=== PATIENT | female | born 1990 | race Caucasian/White ===

== ENCOUNTER 2018-02-14 19:23 | Emergency (ER) | payer OTHER ==
[~2018-02-14] VITALS: Ht 157.5 cm; Wt 59.0 kg
[~2018-02-14 19:23] MED LIST: ALBU17I INH; DEPA250T2 PO; GEOD60CA PO; LAMI25TA3 PO; LEVE500 PO; RISP0.2516 OR; ZOLO25TA PO
[2018-02-14 19:33] VITALS: BP 106/62; PULSE 87; RESP 16; TEMP 98.1; O2SAT 100
[2018-02-14] MEDS ORDERED: SODIUM CHLOR 0.9% 1000 ML INJ 1,000 ML IV SCH (19:48)
--- NOTE | 2018-02-14 19:58 | PD ---
HPI Chief Complaint: Abdominal Pain Time Seen by Provider: 19:36 Travel History International Travel<30 days: No Contact w/Intl Traveler<30days: No Traveled to known affect area: No History of Present Illness HPI Patient is a 27-year-old female presenting to emerge from for evaluation of abdominal pain. Patient states started 2 hours prior to arrival, she reports that it is in her lower abdomen and pelvis. She reports urinary frequency as well as vaginal discharge. Patient states she has felt nauseated and reports vomiting. She denies any fevers, chills, chest pain, shortness of breath. She reports her pain is 8 out of 10, constant and stabbing in nature. Symptom onset was sudden, symptoms are moderate in nature. No alleviating factors, no exacerbating factors. Patient denies any change in her bowel habits. 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) Psychiatric: Yes (Schizoaffective disorder) Schizophrenia: Yes Seizures: Yes ?: Not LMP: October : 5 Para: 1 Past Surgical History Eye Surgery: Yes (EYE MUSCLE/EYE BUCKLE L EYE) Social History Alcohol Use: No Tobacco Use: Yes (3 CIG DAY) Substance Use: Yes (MJ) Allergies-Medications (Allergen,Severity, Reaction): Coded Allergies: No Known Allergies (Unverified Adverse Reaction, Unknown, 02/14/18) Reported Meds & Prescriptions Reported Meds & Active Scripts Active Lamictal (Lamotrigine) 25 Mg Tab 25 Mg PO BID Keppra (Levetriacetam) 500 Mg Tab 3 Tab PO BID Reported Proventil Mdi (Albuterol Sulfate) 17 Gm Aero 1 Puff INH DIRECTED Zoloft (Sertraline HCl) 25 Mg Tab 0 PO DAILY UNKNOWN DOSE Risperdal (Risperidone) 0.25 Mg Tab 0.25 Mg OR TID Depakote (Divalproex Sodium) 250 Mg Tab 250 Mg PO TID Geodon (Ziprasidone) 60 Mg Cap 60 Mg PO BID Review of Systems Except as stated in HPI: all other systems reviewed are Neg General / Constitutional: No: Fever, Chills Cardiovascular: No: Chest Pain or Discomfort Gastrointestinal: Positive: Nausea, Vomiting, Abdominal Pain Genitourinary: Positive: Frequency, Pelvic Pain, Discharge Physical Exam Narrative GENERAL: Well-developed, well-nourished, alert female. Resting comfortably no acute distress. SKIN: Warm and dry. HEAD: Atraumatic. Normocephalic. EYES: Pupils equal and round. No scleral icterus. No injection or drainage. ENT: No nasal bleeding or discharge. Mucous membranes pink and moist. NECK: Trachea midline. No JVD. CARDIOVASCULAR: Regular rate and rhythm. RESPIRATORY: No accessory muscle use. Clear to auscultation. Breath sounds equal bilaterally. GASTROINTESTINAL: Abdomen soft, non-tender, nondistended. Hepatic and splenic margins not palpable. Positive bowel sounds, no rebound, no guarding. MUSCULOSKELETAL: Extremities without clubbing, cyanosis, or edema. No obvious deformities. NEUROLOGICAL: Awake and alert. No obvious cranial nerve deficits. Motor grossly within normal limits. Five out of 5 muscle strength in the arms and legs. Normal speech. PSYCHIATRIC: Appropriate mood and affect; insight and judgment normal. Data Data Last Documented VS Vital Signs Date Time Temp Pulse Resp B/P (MAP) Pulse Ox O2 Delivery O2 Flow Rate FiO2 02/14/18 19:33 98.1 87 16 106/62 (77) 100 Orders Orders Complete Blood Count With Diff (02/14/18 19:48) Comprehensive Metabolic Panel (02/14/18 19:48) Lipase (02/14/18 19:48) Urinalysis - C+S If Indicated (02/14/18 19:48) Iv Access Insert/Monitor (02/14/18 19:48) Ecg Monitoring (02/14/18 19:48) Oximetry (02/14/18 19:48) Sodium Chlor 0.9% 1000 Ml Inj (Ns 1000 M (02/14/18 19:48) Sodium Chloride 0.9% Flush (Ns Flush) (02/14/18 20:00) Gc And Chlamydia Pcr (02/14/18 19:52) Wet Prep Profile (02/14/18 19:52) Labs Laboratory Tests Test 02/14/18 20:00 02/14/18 20:30 White Blood Count 8.0 TH/MM3 Red Blood Count 4.35 MIL/MM3 Hemoglobin 12.2 GM/DL Hematocrit 36.6 % Mean Corpuscular Volume 84.2 FL Mean Corpuscular Hemoglobin 28.0 PG Mean Corpuscular Hemoglobin Concent 33.3 % Red Cell Distribution Width 16.7 % Platelet Count 249 TH/MM3 Mean Platelet Volume 7.3 FL Neutrophils (%) (Auto) 58.5 % Lymphocytes (%) (Auto) 30.4 % Monocytes (%) (Auto) 6.9 % Eosinophils (%) (Auto) 3.6 % Basophils (%) (Auto) 0.6 % Neutrophils # (Auto) 4.7 TH/MM3 Lymphocytes # (Auto) 2.4 TH/MM3 Monocytes # (Auto) 0.6 TH/MM3 Eosinophils # (Auto) 0.3 TH/MM3 Basophils # (Auto) 0.0 TH/MM3 CBC Comment DIFF FINAL Differential Comment Urine Color YELLOW Urine Turbidity CLEAR Urine pH 7.0 Urine Specific [place] 1.017 Urine Protein NEG mg/dL Urine Glucose (UA) NEG mg/dL Urine Ketones NEG mg/dL Urine Occult Blood NEG Urine Nitrite NEG Urine Bilirubin NEG Urine Urobilinogen LESS THAN 2.0 MG/DL Urine Leukocyte Esterase NEG Urine RBC LESS THAN 1 /hpf Urine WBC LESS THAN 1 /hpf Urine Squamous Epithelial Cells 1 /hpf Urine Mucus FEW /lpf Microscopic Urinalysis Comment CULT NOT INDICATED Blood Urea Nitrogen 9 MG/DL Creatinine 0.48 MG/DL Random Glucose 96 MG/DL Total Protein 7.4 GM/DL Albumin 3.7 GM/DL Calcium Level 8.5 MG/DL Alkaline Phosphatase 50 U/L Aspartate Amino Transf (AST/SGOT) 16 U/L Alanine Aminotransferase (ALT/SGPT) 19 U/L Total Bilirubin 0.6 MG/DL Sodium Level 137 MEQ/L Potassium Level 3.6 MEQ/L Chloride Level 104 MEQ/L Carbon Dioxide Level 27.1 MEQ/L Anion Gap 6 MEQ/L Estimat Glomerular Filtration Rate 156 ML/MIN Lipase 181 U/L Clue Cells (Wet Prep) NONE SEEN Vaginal Trichomonas (Wet Prep) NONE SEEN Vaginal Yeast (Wet Prep) NONE SEEN MDM Medical Decision Making Medical Screen Exam Complete: Yes Emergency Medical Condition: Yes Interpretation(s) Vital Signs Date Time Temp Pulse Resp B/P (MAP) Pulse Ox O2 Delivery O2 Flow Rate FiO2 02/14/18 19:33 98.1 87 16 106/62 (77) 100 Laboratory Tests Test 02/14/18 20:00 02/14/18 20:30 White Blood Count 8.0 TH/MM3 Red Blood Count 4.35 MIL/MM3 Hemoglobin 12.2 GM/DL Hematocrit 36.6 % Mean Corpuscular Volume 84.2 FL Mean Corpuscular Hemoglobin 28.0 PG Mean Corpuscular Hemoglobin Concent 33.3 % Red Cell Distribution Width 16.7 % Platelet Count 249 TH/MM3 Mean Platelet Volume 7.3 FL Neutrophils (%) (Auto) 58.5 % Lymphocytes (%) (Auto) 30.4 % Monocytes (%) (Auto) 6.9 % Eosinophils (%) (Auto) 3.6 % Basophils (%) (Auto) 0.6 % Neutrophils # (Auto) 4.7 TH/MM3 Lymphocytes # (Auto) 2.4 TH/MM3 Monocytes # (Auto) 0.6 TH/MM3 Eosinophils # (Auto) 0.3 TH/MM3 Basophils # (Auto) 0.0 TH/MM3 CBC Comment DIFF FINAL Differential Comment Urine Color YELLOW Urine Turbidity CLEAR Urine pH 7.0 Urine Specific [place] 1.017 Urine Protein NEG mg/dL Urine Glucose (UA) NEG mg/dL Urine Ketones NEG mg/dL Urine Occult Blood NEG Urine Nitrite NEG Urine Bilirubin NEG Urine Urobilinogen LESS THAN 2.0 MG/DL Urine Leukocyte Esterase NEG Urine RBC LESS THAN 1 /hpf Urine WBC LESS THAN 1 /hpf Urine Squamous Epithelial Cells 1 /hpf Urine Mucus FEW /lpf Microscopic Urinalysis Comment CULT NOT INDICATED Blood Urea Nitrogen 9 MG/DL Creatinine 0.48 MG/DL Random Glucose 96 MG/DL Total Protein 7.4 GM/DL Albumin 3.7 GM/DL Calcium Level 8.5 MG/DL Alkaline Phosphatase 50 U/L Aspartate Amino Transf (AST/SGOT) 16 U/L Alanine Aminotransferase (ALT/SGPT) 19 U/L Total Bilirubin 0.6 MG/DL Sodium Level 137 MEQ/L Potassium Level 3.6 MEQ/L Chloride Level 104 MEQ/L Carbon Dioxide Level 27.1 MEQ/L Anion Gap 6 MEQ/L Estimat Glomerular Filtration Rate 156 ML/MIN Lipase 181 U/L Clue Cells (Wet Prep) NONE SEEN Vaginal Trichomonas (Wet Prep) NONE SEEN Vaginal Yeast (Wet Prep) NONE SEEN Vital Signs Date Time Temp Pulse Resp B/P (MAP) Pulse Ox O2 Delivery O2 Flow Rate FiO2 02/14/18 19:33 98.1 87 16 106/62 (77) 100 Differential Diagnosis UTI versus pyelonephritis versus PID versus STD versus other Narrative Course Patient is a well-appearing 27-year-old female presenting with complaint of abdominal pain that started 2 hours prior to arrival. Abdominal exam is benign. Urine is negative. labs ordered and pending. Labs reviewed, no acute findings identified. Urinalysis unremarkable, wet prep is unremarkable. Pelvic exam is unremarkable. Additionally patient has been requesting food and drink since she got to the emergency department. There has been no vomiting or complaints of nausea. Apparently patient's mother kicked her out of the house today and she had no vertigo. Will defer treatment for GC and chlamydia until results are available. Patient was given strict return precautions. She was encouraged to follow-up with her primary doctor or return to emergency department for any new or worsening symptoms. Patient was reassured at this time that there were no acute findings. Patient stable for discharge. Diagnosis Primary Impression: Abdominal pain Qualified Codes: R10.30 - Lower abdominal pain, unspecified Referrals: Primary Care Physician Patient Instructions: Abdominal Pain (ED), General Instructions Additional Instructions: Follow-up with your primary doctor Return to emergency department for any new or worsening symptoms as discussed Med/Other Pt SpecificInfo: No Change to Meds Disposition: 01 DISCHARGE HOME Condition: Stable Johnny,Mera HELM February 14, 2018 19:58
[2018-02-14] MEDS ORDERED: SODIUM CHLORIDE 0.9% FLUSH 10 ML FLUSH IV FLUSH PRN (20:00)
[2018-02-14 20:29] LABS: BILIRUBIN, URINE NEG (NEG); BLOOD, URINE NEG (NEG); GLUCOSE,URINE NEG (NEG); KETONE, URINE NEG (NEG); MUCUS URINE FEW /lpf (OCC); NITRITE,URINE NEG (NEG); SQUAMOUS EPITHELIAL CELL URINE 1 /hpf (0-5); URINE COLOR YELLOW (YELLW/STRAW); URINE LEUKOCYTE ESTERASE NEG (NEG)
[2018-02-14 20:37] LABS: AUTOMATED NEUTROPHIL # 4.7 TH/MM3 (1.8-7.7); BASOPHIL % 0.6 % (0.0-2.0); EOSINOPHIL # 0.3 TH/MM3 (0-0.4); EOSINOPHIL % 3.6 % (0.0-4.0); HEMATOCRIT 36.6 % (35.0-46.0); HEMOGLOBIN 12.2 GM/DL (11.6-15.3); LYMPH % 30.4 % (9.0-44.0); LYMPHOCYTE # 2.4 TH/MM3 (1.0-4.8); MEAN CELL VOLUME 84.2 FL (80.0-100.0); MEAN CORPUSCULAR HGB CONC 33.3 % (32.0-36.0); MEAN PLATELET VOLUME 7.3 FL (7.0-11.0); MONO % 6.9 % (0.0-8.0); MONOCYTE # 0.6 TH/MM3 (0-0.9); NEUT % 58.5 % (16.0-70.0); PLATELET COUNT 249 TH/MM3 (150-450); RED BLOOD COUNT 4.35 MIL/MM3 (4.00-5.30); RED CELL DISTRIBUTION WIDTH 16.7 % (11.6-17.2)
[2018-02-14 20:51] LABS: ALBUMIN 3.7 GM/DL (3.4-5.0); AST (GOT) 16 U/L (15-37); BICARBONATE 27.1 MEQ/L (21.0-32.0); BLOOD UREA NITROGEN 9 MG/DL (7-18); CALCIUM 8.5 MG/DL (8.5-10.1); CHLORIDE 104 MEQ/L (98-107); CREATININE 0.48 MG/DL (0.50-1.00); GLOMERULAR FILTRATION RATE 156 ML/MIN (>89); GLUCOSE,RANDOM 96 MG/DL (74-106); SODIUM (NA) 137 MEQ/L (136-145)
[2018-02-14 20:53] LABS: ALT (GPT) 19 U/L (10-53)
[2018-02-14 20:55] LABS: ALKALINE PHOSPHATASE 50 U/L (45-117); TOTAL BILIRUBIN ADULT 0.6 MG/DL (0.2-1.0); TOTAL PROTEIN 7.4 GM/DL (6.4-8.2)
== END 2018-02-14 22:51 | disposition home or self-care (01) ==
LOC: NEPD 19:23
DX: R10.30 Lower abdominal pain, unspecified (principal); F17.210 Nicotine dependence, cigarettes, uncomplicated; F20.9 Schizophrenia, unspecified; F31.9 Bipolar disorder, unspecified; J45.909 Unspecified asthma, uncomplicated
CPT/HCPCS: 80053; 81001; 83690; 85025; 87210; 87491; 87591; 96360; 99284; J7030

== ENCOUNTER 2018-03-09 20:47 | Inpatient (IN) | payer OTHER ==
[~2018-03-09] VITALS: Ht 160 cm; Wt 58.0 kg
[2018-03-09 20:53] VITALS: BP 106/69; PULSE 89; RESP 12; TEMP 98.1
--- NOTE | 2018-03-09 21:15 | PD ---
HPI Chief Complaint: Suicide Ideation/Attempt Time Seen by Provider: 21:02 Travel History International Travel<30 days: No Contact w/Intl Traveler<30days: No Traveled to known affect area: No History of Present Illness HPI 27-year-old female presents emergency department under [place] act by PD for evaluation of depression and suicidal ideation. Patient states that she had a visitation with her child today I had gotten upset. She states that her child lives with her mother and she lives with her aunt. Her mother is the guardian of her child but she does have parental visitation rights. She states that she has been under increasing stress lately. She has contemplated overdosing today. She denies any toxic ingestions. She states that she had called police and advised him of her suicidal ideation. She states that she has attempted to cut an overdose in the past. The patient also states that she would hurt anyone that tries to hurt her but she has no plan on homicide. Patient reports her last period was very short lasting only 2 days earlier this past month. She is unsure whether she could be or not. She had associated nausea and vomiting earlier this morning. She denies any fever chills. No runny nose, cough or congestion. No nausea or vomiting now. No abdominal pain. No dysuria frequency. No vaginal complaints. 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) Psychiatric: Yes (Schizoaffective disorder) Respiratory: No Schizophrenia: Yes Seizures: Yes ?: Unknown (Patient is) LMP: 03/06 : 5 Para: 1 Past Surgical History Eye Surgery: Yes (EYE MUSCLE/EYE BUCKLE L EYE) Hysterectomy: No Social History Alcohol Use: No Tobacco Use: Yes (3 CIG DAY) Substance Use: Yes (MJ) Allergies-Medications (Allergen,Severity, Reaction): Coded Allergies: lurasidone (Verified Allergy, Severe, 03/09/18) tramadol (Verified Allergy, Severe, 03/09/18) lamotrigine (Verified Allergy, Unknown, 03/09/18) mushroom (Verified Allergy, Unknown, 03/09/18) pineapple (Verified Allergy, Unknown, 03/09/18) Reported Meds & Prescriptions Reported Meds & Active Scripts Active Reported Epipen 2-Luis Eduardo Inj (Epinephrine) 0.3 Mg/0.3 Ml Pfpen 0.3 Mg IM ONCE PRN Acyclovir 200 Mg Cap 200 Mg PO 5 TIMES A DAY Review of Systems General / Constitutional: No: Fever Eyes: No: Visual changes HENT: No: Headaches Cardiovascular: No: Chest Pain or Discomfort Respiratory: No: Shortness of Breath Gastrointestinal: Positive: Nausea, Vomiting, No: Abdominal Pain Genitourinary: No: Dysuria Musculoskeletal: No: Pain Skin: No Rash Neurologic: No: Weakness Psychiatric: Positive: Anxiety, Depression, Suicidal Ideations, Mood Disorder, Substance Abuse, No: Disorder of Thought, Homicidal Ideation Endocrine: No: Polydipsia Hematologic/Lymphatic: No: Easy Bruising Physical Exam Narrative GENERAL: Well-nourished, well-developed patient. SKIN: Warm and dry. HEAD: Normocephalic and atraumatic. EYES: No scleral icterus. No injection or drainage. Patient has strabismus in the right eye. The left eye is normal. ENT: No nasal drainage noted. Mucous membranes pink. Airway patent. NECK: Supple, trachea midline. Moves head freely without obvious discomfort. CARDIOVASCULAR: Regular rate and rhythm without murmurs, gallops, or rubs. RESPIRATORY: Breath sounds equal bilaterally. No accessory muscle use. GASTROINTESTINAL: Abdomen soft, non-tender, nondistended. EXTREMITIES: No cyanosis or edema. BACK: Nontender without obvious deformity. No CVA tenderness. NEURO: Patient is alert and oriented. no sensorimotor deficits. Nonfocal. Normal speech. PSYCH: No delusions. No auditory or visual hallucinations. Data Data Last Documented VS Orders Orders Thyroid Stimulating Hormone (03/09/18 21:09) Ed Urine Pregnancytest Poc (03/09/18 21:09) Psych Screen (03/09/18 21:09) Drug Screen, Random Urine (03/09/18 21:09) Alcohol (Ethanol) (03/09/18 21:09) Complete Blood Count With Diff (03/09/18 21:41) Comprehensive Metabolic Panel (03/09/18 21:41) Diet Regular Basic (03/10/18 Breakfast) Admit Order (Ed Use Only) (03/10/18 ) Admit To Inpatient Psych (03/10/18 ) Code Status (03/10/18 10:40) Vital Signs (Adult) [id number] (03/10/18 10:40) Activity Oob Ad Salud (03/10/18 10:40) Level Of Observation (Psych) (03/10/18 10:40) Acetaminophen (Tylenol) (03/10/18 10:45) Magnesium Hydroxide Liq (Milk Of Magnesi (03/10/18 10:45) Al-Mag Hy-Si 40-40-4 Mg/Ml Liq (Mag-Al P (03/10/18 10:45) Basic Metabolic Panel (Bmp) (03/11/18 06:00) Lipid Profile (03/11/18 06:00) Hemoglobin (Hgb) A1c (03/11/18 06:00) Electrocardiogram (03/11/18 ) Labs Laboratory Tests Test 03/09/18 21:10 03/09/18 21:15 White Blood Count 6.0 TH/MM3 Red Blood Count 4.41 MIL/MM3 Hemoglobin 12.2 GM/DL Hematocrit 37.2 % Mean Corpuscular Volume 84.5 FL Mean Corpuscular Hemoglobin 27.6 PG Mean Corpuscular Hemoglobin Concent 32.7 % Red Cell Distribution Width 14.7 % Platelet Count 252 TH/MM3 Mean Platelet Volume 7.7 FL Neutrophils (%) (Auto) 59.3 % Lymphocytes (%) (Auto) 28.8 % Monocytes (%) (Auto) 9.1 % Eosinophils (%) (Auto) 2.1 % Basophils (%) (Auto) 0.7 % Neutrophils # (Auto) 3.6 TH/MM3 Lymphocytes # (Auto) 1.7 TH/MM3 Monocytes # (Auto) 0.5 TH/MM3 Eosinophils # (Auto) 0.1 TH/MM3 Basophils # (Auto) 0.0 TH/MM3 CBC Comment DIFF FINAL Differential Comment Blood Urea Nitrogen 14 MG/DL Creatinine 0.63 MG/DL Random Glucose 81 MG/DL Total Protein 8.3 GM/DL Albumin 4.2 GM/DL Calcium Level 8.9 MG/DL Alkaline Phosphatase 48 U/L Aspartate Amino Transf (AST/SGOT) 13 U/L Alanine Aminotransferase (ALT/SGPT) 15 U/L Total Bilirubin 0.5 MG/DL Sodium Level 141 MEQ/L Potassium Level 3.9 MEQ/L Chloride Level 107 MEQ/L Carbon Dioxide Level 24.6 MEQ/L Anion Gap 9 MEQ/L Estimat Glomerular Filtration Rate 114 ML/MIN Thyroid Stimulating Hormone 3rd Gen 1.280 uIU/ML Ethyl Alcohol Level LESS THAN 3 MG/DL Urine Opiates Screen NEG Urine Barbiturates Screen NEG Urine Amphetamines Screen NEG Urine Benzodiazepines Screen NEG Urine Cocaine Screen NEG Urine Cannabinoids Screen NEG MDM Medical Decision Making Medical Screen Exam Complete: Yes Emergency Medical Condition: Yes Medical Record Reviewed: Yes Differential Diagnosis MDM: High Differential diagnoses: Schizophrenia, schizoaffective disorder, bipolar, anxiety, depression, adjustment reaction, mood disorder NOS, ODD, depressive disorder NOS, psychosis NOS, substance induced mood disorder, DMDD, Asperger syndrome, infection,electrolyte abnormality, malingering. Narrative Course Mental health screening discussed with the patient. Psychiatric screen ordered. Scripts Risperidone (Risperdal) 1 Mg Tab 1 MG PO Q12HR for Mental Health for 15 Days, TAB 1 Refill Prov: Feliberto Landis MD 03/16/18 Condition: Stable Wayne Thapa Mar 09, 2018 21:15
[2018-03-09 22:25] LABS: AUTOMATED NEUTROPHIL # 3.6 TH/MM3 (1.8-7.7); BASOPHIL % 0.7 % (0.0-2.0); EOSINOPHIL # 0.1 TH/MM3 (0-0.4); EOSINOPHIL % 2.1 % (0.0-4.0); HEMATOCRIT 37.2 % (35.0-46.0); HEMOGLOBIN 12.2 GM/DL (11.6-15.3); LYMPH % 28.8 % (9.0-44.0); LYMPHOCYTE # 1.7 TH/MM3 (1.0-4.8); MEAN CELL VOLUME 84.5 FL (80.0-100.0); MEAN CORPUSCULAR HEMOGLOBIN 27.6 PG (27.0-34.0); MEAN CORPUSCULAR HGB CONC 32.7 % (32.0-36.0); MEAN PLATELET VOLUME 7.7 FL (7.0-11.0); MONO % 9.1 % (0.0-8.0); MONOCYTE # 0.5 TH/MM3 (0-0.9); NEUT % 59.3 % (16.0-70.0); PLATELET COUNT 252 TH/MM3 (150-450); RED BLOOD COUNT 4.41 MIL/MM3 (4.00-5.30); RED CELL DISTRIBUTION WIDTH 14.7 % (11.6-17.2)
[2018-03-09 22:30] VITALS: BP 113/58; PULSE 80; RESP 16; O2SAT 99
[2018-03-09] MEDS ORDERED: EPIP0.3I IM (23:07)
[2018-03-09] MEDS ORDERED: ERYTOIN10 RIGHT EYE (23:07)
[2018-03-09] MEDS ORDERED: GABA300C5 PO (23:07)
[2018-03-09] MEDS ORDERED: EAR6.5SO3 RIGHT EAR (23:07)
[2018-03-09] MEDS ORDERED: ACYC200C66 PO (23:07)
[2018-03-09] MEDS ORDERED: OLAN20TA PO (23:07)
[2018-03-09 23:26] LABS: ALBUMIN 4.2 GM/DL (3.4-5.0); ALT (GPT) 15 U/L (10-53); AST (GOT) 13 U/L (15-37); BICARBONATE 24.6 MEQ/L (21.0-32.0); BLOOD UREA NITROGEN 14 MG/DL (7-18); CALCIUM 8.9 MG/DL (8.5-10.1); CHLORIDE 107 MEQ/L (98-107); CREATININE 0.63 MG/DL (0.50-1.00); GLOMERULAR FILTRATION RATE 114 ML/MIN (>89); GLUCOSE,RANDOM 81 MG/DL (74-106); SODIUM (NA) 141 MEQ/L (136-145)
[2018-03-09 23:29] LABS: ALKALINE PHOSPHATASE 48 U/L (45-117); TOTAL BILIRUBIN ADULT 0.5 MG/DL (0.2-1.0); TOTAL PROTEIN 8.3 GM/DL (6.4-8.2)
[2018-03-10 03:00] VITALS: BP 105/54; PULSE 84; RESP 20; O2SAT 99
[2018-03-10] MEDS ORDERED: ALUMINUM/MAGNESIUM/SIMETH 30 ML CUP PO PRN (10:45)
[2018-03-10] MEDS ORDERED: MAGNESIUM HYDROXIDE SUSP 30 ML CUP PO PRN (10:45)
--- NOTE | 2018-03-10 15:30 | HHI.HP ---
Provisional Diagnosis Admission Date Mar 10, 2018 at 10:44 [place] I. Schizoaffective disorder, bipolar type, cocaine and cannabis use disorder [place] II. Cluster B traits [place] III. Asthma Certification of Person's Competence To Provide Express and Informed Consent I have personally examined Fiorella Lawson , a person being served at [facility] on, Mar 10, 2018 15:18. Express and informed consent means consent voluntarily given in writing, by a competent person, after sufficient explanation and disclosure of the subject matter involved to enable the person to make a knowing and willful decision without any element of force, fraud, deceit, duress, or other form of constraint or coercion. This person is 18 years of age or older, is not now known to be incompetent to consent to treatment with a guardian advocate, and does not have a health care surrogate or proxy currently making medical treatment decisions. I have found this person to be one of the following: [x] Competent to provide express and informed consent, as defined above, for voluntary admission to this facility and is competent to provide express and informed consent for treatment. He/she has the consistent capacity to make well reasoned, willful, and knowing decisions concerning his or her medical or mental health treatment. The person fully and consistently understands the purpose of the admission for examination/placement and is fully capable of personally exercising all rights assured under [place] Incompetent to provide express and informed consent to voluntary admission, and this is incompetent to provide express and informed consent to treatment. The person must be transferred to involuntary status and a petition for a guardian advocate filed with the Circuit Court. [] Refusing to provide express and informed consent to voluntary admission but is competent to provide express and informed consent for treatment. The person must be discharged or transferred to involuntary status. Form shall be completed within 24 hours of a person's arrival at the receiving facility and filed in the clinical record of each person: 1. Admitted on a voluntary basis 2. Permitted to provide express and informed consent to his/her own treatment 3. Allowed to transfer from involuntary to voluntary status 4. Prior to permitting a person to consent to his or her own treatment after having been previously found incompetent to consent to treatment. History of Present Illness Capacity: Has Capacity HPI The patient is 27-year-old woman, domiciled in [place] with her aunt, single, unemployed, supported by [facility], with psychiatric history of schizoaffective disorder, cocaine and cannabis use disorder, impulse control, multiple psychiatric hospitalizations, multiple silo times, extensive history of self cutting behavior with no SI, she is noting medication at the moment, history of using high doses of Seroquel and Depakote, medical history of asthma , who presents emergency department under [place] act by PD for evaluation of depression and suicidal ideation. Patient states that she had a visitation with her child today I had gotten upset. She states that her child lives with her mother and she lives with her aunt. Her mother is the guardian of her child but she does have parental visitation rights. She states that she has been under increasing stress lately. She has contemplated overdosing today. She denies any toxic ingestions. She states that she had called police and advised him of her suicidal ideation. She states that she has attempted to cut an overdose in the past. The patient also states that she would hurt anyone that tries to hurt her but she has no plan on homicide. Patient reports her last period was very short lasting only 2 days earlier this past month. EMR was reviewed. The patient was seen today for psychiatric evaluation. The patient was calm, cooperative, tearful throughout the evaluation. The patient reports that she has been quite depressed because "a lot of things are going wrong my life", as the patient is talking, she is crying profusely. She reports that her grandmother passed out last September and since then she has been feeling [place], rejected by everybody, she states that her grandmother was the only person who really understood her. She reported that she has been quite stressed because her son is autistic and every time that she visit him he does not seem to have any memory of her. The patient reports having suicidal thoughts with a plan of cutting of jumping in front traffic, she denies homicidal ideation, denies visual and auditory hallucinations at the moment. She is oriented x3, logical, coherent and relevant, but quite agitated and dysregulated. She denies the use of alcohol and illegal drugs. Review of Systems Constitutional: DENIES: Diaphoretic episodes, Fatigue, Fever, Weight gain, Weight loss, Chills, Dizziness, Change in appetite, Night Sweats Endocrine: DENIES: Abnorml menstrual pattern, Heat/cold intolerance, Polydipsia , Polyuria, Polyphagia Eyes: DENIES: Blurred vision, Diplopia, Eye inflammation, Eye pain, Vision loss , Photosensitivity, Double Vision Ears, nose, mouth, throat: DENIES: Tinnitus, Hearing loss, Vertigo, Nasal discharge, Oral lesions, Throat pain, Hoarseness, Ear Pain, Running Nose, Epistaxis, Sinus Pain, Toothache, Odynophagia Respiratory: DENIES: Apneas, Cough, Snoring, Wheezing, Hemoptysis, Sputum production, Shortness of breath Cardiovascular: DENIES: Chest pain, Palpitations, Syncope, Dyspnea on Exertion , PND, Lower Extremity Edema, Orthopnea, Claudication Gastrointestinal: DENIES: Abdominal pain, Black stools, Bloody stools, Constipation, Diarrhea, Nausea, Vomiting, Difficulty Swallowing, Anorexia Genitourinary: DENIES: Abnormal vaginal bleeding, Dysmenorrhea, Dyspareunia, Sexual dysfunction, Urinary frequency, Urinary incontinence, Urgency, Hematuria , Dysuria, Nocturia, Vaginal discharge Musculoskeletal: DENIES: Joint pain, Muscle aches, Stiffness, Joint Swelling, Back pain, Neck pain Integumentary: DENIES: Abnormal pigmentation, Pruritus, Rash, Nail changes, Breast masses, Breast skin changes, Nipple discharge Hematologic/lymphatic: DENIES: Bruising, Lymphadenopathy Immunologic/allergic: DENIES: Eczema, Urticaria Neurologic: DENIES: Abnormal gait, Headache, Localized weakness, Paresthesias, Seizures, Speech Problems, Tremor, Poor Balance Psychiatric: COMPLAINS OF: Mood changes, Depression, Suicidal Ideation, DENIES : Anxiety, Confusion, Hallucinations, Agitation, Homicidal Ideation, Delusions Substance Abuse History Drugs/Alcohol past 12 months Reports occasional use of marijuana and cocaine Past Family Social History Coded Allergies: lurasidone (Verified Allergy, Severe, 03/09/18) tramadol (Verified Allergy, Severe, 03/09/18) lamotrigine (Verified Allergy, Unknown, 03/09/18) mushroom (Verified Allergy, Unknown, 03/09/18) pineapple (Verified Allergy, Unknown, 03/09/18) Reported Medications Epinephrine Inj (Epipen 2-Luis Eduardo Inj) 0.3 Mg/0.3 Ml Pfpen, 0.3 MG IM ONCE Y for ALLERGIC REACTION, #1 PACK 0 Refills 03/09/18 Acyclovir (Acyclovir) 200 Mg Cap, 200 MG PO 5 TIMES A DAY for Mgmt Viral Infection, CAP 0 Refills 03/09/18 Olanzapine (Olanzapine) 20 Mg Tab, 20 MG PO HS, #30 TAB 0 Refills 03/09/18 Gabapentin (Gabapentin) 300 Mg Cap, 300 MG PO BID, #60 CAP 0 Refills 03/09/18 Carbamide Peroxide Otic Drops (Ear Drops) 6.5% Soln, 5 DROP RIGHT EAR BID Y for EAR WAX REMOVAL, #15 ML 03/09/18 Erythromycin Opth Oint (Erythromycin Opth Oint) 5 Mg/Gm Oint, 1 APPLIC RIGHT EYE Q4HR WHILE AWAKE for Infection for 5 Days, #1 TUBE 0 Refills 03/09/18 Discontinued Reported Medications Albuterol Sulfate (Proventil Mdi) 17 Gm Aero, 1 PUFF INH DIRECTED 12/05/13 Sertraline Hcl (Zoloft) 25 Mg Tab, 0 PO DAILY, TAB UNKNOWN DOSE 12/05/13 Risperidone (Risperdal) 0.25 Mg Tab, 0.25 MG OR TID, TAB 12/05/13 Divalproex Sodium 250 mg (Depakote 250 mg) 250 Mg Tab, 250 MG PO TID, TAB 12/05/13 Ziprasidone Hcl (Geodon) 60 Mg Cap, 60 MG PO BID, CAP 12/05/13 Discontinued Scripts Lamotrigine (Lamictal) 25 Mg Tab, 25 MG PO BID, #60 TAB Prov:Tung Freitas MD 12/05/13 Levetiracetam (Keppra) 500 Mg Tab, 3 TAB PO BID, #180 TAB Prov:Tung Freitas MD 12/05/13 Current Medications Medications (Trade) Dose Ordered Sig/Earl Route Start Time Stop Time Status Last Admin (Tylenol) 650 mg Q4H PRN PO 03/10/18 10:45 (Milk Of Magnesia Liq) 30 ml DAILY PRN PO 03/10/18 10:45 (Mag-Al Plus Susp Liq) 30 ml Q6H PRN PO 03/10/18 10:45 Family Psych History No family psychiatric Social History The patient was born and raised in [place], she is [place] descendent, lives with her account in [facility], she has a 6 years old boy who lives with [id number], unemployed, on SSI, her highest level of education is 11th grade Patient's Strengths (min. 2) Verbal communication Physical Exam Vital Signs Vital Signs Date Time Temp Pulse Resp B/P (MAP) Pulse Ox O2 Delivery O2 Flow Rate FiO2 03/10/18 03:00 84 20 105/54 (71) 99 Room Air 03/09/18 20:53 98.1 Lab Results Test 03/09/18 21:10 03/09/18 21:15 White Blood Count 6.0 TH/MM3 Red Blood Count 4.41 MIL/MM3 Hemoglobin 12.2 GM/DL Hematocrit 37.2 % Mean Corpuscular Volume 84.5 FL Mean Corpuscular Hemoglobin 27.6 PG Mean Corpuscular Hemoglobin Concent 32.7 % Red Cell Distribution Width 14.7 % Platelet Count 252 TH/MM3 Mean Platelet Volume 7.7 FL Neutrophils (%) (Auto) 59.3 % Lymphocytes (%) (Auto) 28.8 % Monocytes (%) (Auto) 9.1 % Eosinophils (%) (Auto) 2.1 % Basophils (%) (Auto) 0.7 % Neutrophils # (Auto) 3.6 TH/MM3 Lymphocytes # (Auto) 1.7 TH/MM3 Monocytes # (Auto) 0.5 TH/MM3 Eosinophils # (Auto) 0.1 TH/MM3 Basophils # (Auto) 0.0 TH/MM3 CBC Comment DIFF FINAL Differential Comment Blood Urea Nitrogen 14 MG/DL Creatinine 0.63 MG/DL Random Glucose 81 MG/DL Total Protein 8.3 GM/DL Albumin 4.2 GM/DL Calcium Level 8.9 MG/DL Alkaline Phosphatase 48 U/L Aspartate Amino Transf (AST/SGOT) 13 U/L Alanine Aminotransferase (ALT/SGPT) 15 U/L Total Bilirubin 0.5 MG/DL Sodium Level 141 MEQ/L Potassium Level 3.9 MEQ/L Chloride Level 107 MEQ/L Carbon Dioxide Level 24.6 MEQ/L Anion Gap 9 MEQ/L Estimat Glomerular Filtration Rate 114 ML/MIN Thyroid Stimulating Hormone 3rd Gen 1.280 uIU/ML Ethyl Alcohol Level LESS THAN 3 MG/DL Urine Opiates Screen NEG Urine Barbiturates Screen NEG Urine Amphetamines Screen NEG Urine Benzodiazepines Screen NEG Urine Cocaine Screen NEG Urine Cannabinoids Screen NEG Mental Status Examination Appearance: Appropriate Consciousness: Alert Orientation: x4 Motor Activity: Normal gait Speech: Unremarkable Language: Adequate Fund of Knowledge: Adequate Attention and Concentration: Adequate Memory: Unremarkable Mood: Angry Affect: Irritable Thought Process & Associations: Intact Thought Content: Appropriate Hallucination Type: None Delusion Type: None Suicidal Ideation: Yes Suicidal Plan: Yes Suicidal Intention: No Homicidal Ideation: No Homicidal Plan: No Homicidal Intention: No Insight: Poor Judgment: Poor Assessment & Plan Problem List: (1) Schizoaffective disorder ICD Codes: F25.9 - Schizoaffective disorder, unspecified Assessment & Plan: On psychiatric evaluation today the patient presents with symptoms of depression, very vulnerable, fragile, crying profusely, stating that she has nothing to live for, that she is acutely suicidal and want to end her life. The patient reports suicidal ideation with a plan of jumping in front of a car according herself. This is a patient with a extensive history of schizoaffective disorder, multiple psychotic hospitalizations, multiple times, extensive history of self cutting behavior and self-mutilation, no in medication at this moment. Patient has an elevated risk of danger to self, she needs psychiatric hospitalization for stabilization. We will start Seroquel 25 mg twice daily for impulse control. Patient will be admitted in Voluntary basis. [facility] 2600 unit. Assessment & Plan Estimated LOS: days Problem Qualifiers (1) Schizoaffective disorder: Qualified Codes: F25.0 - Schizoaffective disorder, bipolar type Lucius Askew MD Mar 10, 2018 15:30
[2018-03-10] MEDS: ACETAMINOPHEN 325 MG TAB PO PRN (15:42)
[2018-03-10 18:19] VITALS: BP 106/66; PULSE 80; RESP 16; TEMP 98.2; O2SAT 97
[2018-03-11 06:19] VITALS: BP 92/50; PULSE 68; RESP 18; TEMP 98.2; O2SAT 99
[2018-03-11] MEDS: QUEtiapine FUMARATE 25 MG TAB PO SCH ×3 (08:32→21:17)
[2018-03-11 08:54] LABS: BICARBONATE 28.4 MEQ/L (21.0-32.0); BLOOD UREA NITROGEN 9 MG/DL (7-18); CALCIUM 9.2 MG/DL (8.5-10.1); CHLORIDE 104 MEQ/L (98-107); CREATININE 0.72 MG/DL (0.50-1.00); GLOMERULAR FILTRATION RATE 98 ML/MIN (>89); GLUCOSE,RANDOM 91 MG/DL (74-106); SODIUM (NA) 139 MEQ/L (136-145)
[2018-03-11 08:55] LABS: CHOLESTEROL 157 MG/DL (120-200)
[2018-03-11 09:00] LABS: CHOLESTEROL/ HDL RATIO 2.02 RATIO; HDL CHOLESTEROL 77.6 MG/DL (40.0-60.0); LDL CHOLESTEROL 71 MG/DL (0-99); TRIGLYCERIDES 42 MG/DL (42-150)
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
[2018-03-11] MEDS: ACYCLOVIR 200 MG CAP PO SCH ×3 (13:21→21:37)
--- NOTE | 2018-03-11 15:07 | EKG ---
Date Performed: 03/11/2018 Time Performed: 12:27:20 PTAGE: 27 years EKG: Sinus rhythm NORMAL ECG NO PREVIOUS TRACING DOCTOR: Daniel Huynh Interpretating Date/Time 03/11/2018 15:05:58
[2018-03-11 18:31] VITALS: BP 92/51; PULSE 63; RESP 16; TEMP 98.3; O2SAT 94
[2018-03-12 05:38] VITALS: BP 87/49; PULSE 83; RESP 16; TEMP 97.8; O2SAT 100
[2018-03-12] MEDS: ACYCLOVIR 200 MG CAP PO SCH ×5 (05:49→21:33)
[2018-03-12] MEDS: QUEtiapine FUMARATE 25 MG TAB PO SCH ×2 (08:12→20:13)
[2018-03-12] MEDS: ACETAMINOPHEN 325 MG TAB PO PRN ×2 (08:51→14:15)
--- NOTE | 2018-03-12 11:50 | HHI.PYPN ---
Subjective Remarks Reviewed electronic medical records and discussed case with staff. Follow-up was conducted in patient's room. Patient was found sleeping soundly however, she woke to verbal stimulation. She reports that her appetite's been good and she has been sleeping quite well. She denies auditory hallucinations or thoughts of self-harm. Her nurse reports she has been compliant with her medications, doing well, complains of feeling sleepy and being dizzy however it is likely result of the initiation of her medication. Mental Status Examination Appearance: Appropriate Consciousness: Alert Orientation: x4 Motor Activity: Normal gait Speech: Unremarkable Language: Adequate Fund of Knowledge: Adequate Attention and Concentration: Adequate Memory: Unremarkable Mood: Angry Affect: Irritable Thought Process & Associations: Intact Thought Content: Appropriate Hallucination Type: None Delusion Type: None Suicidal Ideation: Yes Suicidal Plan: Yes Suicidal Intention: No Homicidal Ideation: No Homicidal Plan: No Homicidal Intention: No Insight: Poor Judgment: Poor Results Vitals/IOs Vital Signs Date Time Temp Pulse Resp B/P (MAP) Pulse Ox O2 Delivery O2 Flow Rate FiO2 03/12/18 05:38 97.8 83 16 87/49 (62) 100 03/10/18 03:00 Room Air Intake and Output 03/12/18 03/12/18 03/13/18 08:00 16:00 00:00 Intake Total 840 ml Balance 840 ml Assessment & Plan Problem List: (1) Schizoaffective disorder ICD Codes: F25.9 - Schizoaffective disorder, unspecified Assessment & Plan Estimated LOS: Continue with current treatment plan. Patient be reevaluated by attending psychiatrist tomorrow. Days Justification for Cont. Inpt. Moving this patient to a less restrictive environment would likely result in decompensation. Problem Qualifiers (1) Schizoaffective disorder: Qualified Codes: F25.0 - Schizoaffective disorder, bipolar type Alma Jones Mar 12, 2018 11:50
[2018-03-12 12:43] LABS: HEMOGLOBIN A1C 4.9 % (4.3-6.0)
[2018-03-12 18:21] VITALS: BP 93/44; PULSE 68; RESP 16; TEMP 98.4; O2SAT 100
[2018-03-13 05:15] VITALS: BP 98/58; PULSE 68; RESP 16; TEMP 98; O2SAT 98
[2018-03-13] MEDS: ACYCLOVIR 200 MG CAP PO SCH ×5 (05:52→21:25)
[2018-03-13] MEDS: QUEtiapine FUMARATE 25 MG TAB PO SCH (08:59)
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
[2018-03-13] MEDS ORDERED: diphenhydrAMINE HCL 50 MG CAP PO PRN (13:00)
[2018-03-13] MEDS: ACETAMINOPHEN 325 MG TAB PO PRN ×2 (16:00→21:26)
[2018-03-13] MEDS: risperiDONE 1 MG TAB PO SCH (21:25)
[2018-03-14] MEDS: ACETAMINOPHEN 325 MG TAB PO PRN ×2 (05:51→17:35)
[2018-03-14 06:12] VITALS: BP 91/51; PULSE 64; RESP 18; TEMP 98; O2SAT 100
--- NOTE | 2018-03-14 08:40 | PD.TTN ---
Patient Problems 1. Discharge planning 2. Medication compliance 3. Knowledge deficit 4. Lack of coping skills Progress Toward Goals Provider Present: Dr. Ralph Landis Provider Input: 03/14/18 Nurse(s) Input: 03/14/18 Psychiatric Counselors Present: Anastacia Schmitz LCSW Psych Therapist Input: 03/14/18 referred to [facility] , not sure if available , she is very talkative and shares she has many mental health issues and symptoms with different diagnosis appearing somewhat manic, very happy and outgoing yesterday in group and stating she wants an [facility] to help her with stability Group Spec/RT/OT/RAMOS Present: Lexis Pop, GPS Group Spec/RT/OT/RAMOS Input: 03/14/18 does attend select groups insightful in group and enages in projects and is appearing Anastacia Padron LCSW Mar 14, 2018 08:40
--- NOTE | 2018-03-14 08:47 | PD.TTN ---
Patient Problems 1. Discharge planning 2. Medication compliance 3. Knowledge deficit 4. Lack of coping skills Progress Toward Goals Provider Present: Dr. Ralph Landis Provider Input: 03/14/18 changed medications and working on possible to Invega Nurse(s) Input: 03/14/18 Psychiatric Counselors Present: Anastacia Schmitz LCSW Psych Therapist Input: 03/14/18 referred to [facility] , not sure if available , she is very talkative and shares she has many mental health issues and symptoms with different diagnosis appearing somewhat manic, very happy and outgoing yesterday in group and stating she wants an [facility] to help her with stability Group Spec/RT/OT/RAMOS Present: Lexis Pop, GPS Group Spec/RT/OT/RAMOS Input: 03/14/18 does attend select groups insightful in group and enages in projects and is appearing Anastacia Padron LCSW Mar 14, 2018 08:47
[2018-03-14] MEDS: risperiDONE 1 MG TAB PO SCH ×2 (09:17→20:16)
[2018-03-14] MEDS: ACYCLOVIR 200 MG CAP PO SCH ×4 (09:53→20:16)
--- NOTE | 2018-03-14 11:49 | HHI.PYPN ---
Subjective Remarks Patient seen and examined with nurse. Chart reviewed. Case discussed with nursing staff. No behavioral issues noted overnight. Case discussed in treatment team. Counselor notes that she has referred the patient to assisted living facilities. Recreation therapist notes that the patient is attending group activities. On my examination today, the patient denies AVH. She says that her hallucinations stopped as soon as she began taking the Risperdal. No SI or HI. Affect is bright and euthymic if somewhat childlike. No side effects from medications. Complains of mild headache in typical headache pattern for her. No other physical complaints. Review of Systems Except as stated in HPI: all other systems reviewed are Neg Mental Status Examination Appearance: Appropriate Consciousness: Alert Orientation: x4 Motor Activity: Other (No abnormal motor movements noted) Speech: Unremarkable Language: Adequate Fund of Knowledge: Adequate Attention and Concentration: Adequate Memory: Unremarkable Mood: Appropriate Affect: Appropriate, Euthymic (Somewhat childlike) Thought Process & Associations: Intact, Logical, Linear Thought Content: Appropriate Hallucination Type: None Delusion Type: None Suicidal Ideation: No Suicidal Plan: No Suicidal Intention: No Homicidal Ideation: No Homicidal Plan: No Homicidal Intention: No Insight: Poor Judgment: Poor Results Labs Labs reviewed. No new labs. Vitals/IOs Vital Signs Date Time Temp Pulse Resp B/P (MAP) Pulse Ox O2 Delivery O2 Flow Rate FiO2 03/14/18 06:12 98.0 64 18 91/51 (64) 100 Intake and Output 03/14/18 03/14/18 03/15/18 08:00 16:00 00:00 Intake Total 360 ml Balance 360 ml Assessment & Plan Problem List: (1) Schizoaffective disorder ICD Codes: F25.9 - Schizoaffective disorder, unspecified Assessment & Plan Continue Risperdal as ordered. To consider initiation of long-acting injectable antipsychotic. Motrin as needed for headache. Continue to monitor on the inpatient unit. Continue other medications and care as ordered. Justification for Cont. Inpt. Risk for decompensation in less restrictive environment. Discharge Planning Possible assisted living placement. Request HC Surrog/Guard Advoc?: No Problem Qualifiers (1) Schizoaffective disorder: Qualified Codes: F25.0 - Schizoaffective disorder, bipolar type Feliberto Landis MD Mar 14, 2018 11:49
[2018-03-14] MEDS ORDERED: IBUPROFEN 600 MG TAB PO PRN (12:00)
--- NOTE | 2018-03-14 12:16 | PD.TTN ---
Patient Problems 1. Discharge planning 2. Medication compliance 3. Knowledge deficit 4. Lack of coping skills Progress Toward Goals Provider Present: Dr. Ralph Landis Provider Input: 03/14/18 changed medications and working on possible to [facility] Nurse(s) Input: 03/14/18 Ronda : med compliant and cooperative Psychiatric Counselors Present: Anastacia Schmitz LCSW Psych Therapist Input: 03/14/18 referred to [facility] , not sure if available , she is very talkative and shares she has many mental health issues and symptoms with different diagnosis appearing somewhat manic, very happy and outgoing yesterday in group and stating she wants an [facility] to help her with stability- this afternoon agrees to go to [facility] or any [facility] whichever ones will accept her - awaiting answers tomorrow Group Spec/RT/OT/RAMOS Present: Lexis Pop, BRANT Group Spec/RT/OT/RAMOS Input: 03/14/18 does attend select groups insightful in group and enages in projects and is appearing social Anastacia Schmitz LCSW Mar 14, 2018 12:16
[2018-03-14 18:10] VITALS: BP 114/67; PULSE 111; RESP 17; TEMP 98.1; O2SAT 95
[2018-03-15] MEDS: ACYCLOVIR 200 MG CAP PO SCH ×5 (05:36→21:01)
[2018-03-15 06:12] VITALS: BP 98/54; PULSE 71; RESP 18; TEMP 98.7; O2SAT 97
[2018-03-15] MEDS: risperiDONE 1 MG TAB PO SCH ×2 (08:36→21:01)
[2018-03-15] MEDS: ACETAMINOPHEN 325 MG TAB PO PRN (08:38)
--- NOTE | 2018-03-15 12:27 | HHI.PYPN ---
Subjective Remarks Patient seen and examined with counselor. Chart reviewed. Case discussed with nursing staff. No behavioral issues noted. On my examination today, the patient is in good spirits. She denies any SI or HI. Denies any AVH. Counselor shares that the patient was evaluated by one [facility] yesterday and will be evaluated by another today. Patient remains enthusiastic about [facility] placement. Counselor notes facilities are requesting screening chest x-ray, which I have ordered. Patient denies side effects from medications. She has no physical complaints. Review of Systems Except as stated in HPI: all other systems reviewed are Neg Mental Status Examination Appearance: Appropriate Consciousness: Alert Orientation: x4 Motor Activity: Other (No motoric abnormalities appreciated) Speech: Unremarkable Language: Adequate Fund of Knowledge: Adequate Attention and Concentration: Adequate Memory: Unremarkable Mood: Appropriate Affect: Appropriate, Euthymic (Remains a little childlike) Thought Process & Associations: Intact, Logical, Linear Thought Content: Appropriate Hallucination Type: None Delusion Type: None Suicidal Ideation: No Suicidal Plan: No Suicidal Intention: No Homicidal Ideation: No Homicidal Plan: No Homicidal Intention: No Insight: Poor Judgment: Poor Results Labs Labs reviewed. No new labs. Last Impressions Chest X-Ray 03/15/18 0000 Signed Impressions: CONCLUSION: Negative for acute process Vitals/IOs Vital Signs Date Time Temp Pulse Resp B/P (MAP) Pulse Ox O2 Delivery O2 Flow Rate FiO2 03/15/18 06:12 98.7 71 18 98/54 (69) 97 Assessment & Plan Problem List: (1) Schizoaffective disorder ICD Codes: F25.9 - Schizoaffective disorder, unspecified Assessment & Plan Continue oral Risperdal as ordered. Patient seems to be improved with this agent at current dose. I did recommend to the patient initiation of a long- acting injectable to ensure good adherence on an outpatient basis, but she has declined. Screening chest x-ray negative for acute process. Continue other medications and care as ordered. Justification for Cont. Inpt. Final discharge planning Discharge Planning Anticipate discharge to [facility] tomorrow, . Request HC Surrog/Guard Advoc?: No Problem Qualifiers (1) Schizoaffective disorder: Qualified Codes: F25.0 - Schizoaffective disorder, bipolar type Feliberto Landis MD Mar 15, 2018 12:27
--- NOTE | 2018-03-15 13:57 | RADRPT ---
EXAM DATE: 03/15/2018 1:50 PM EDT AGE/SEX: 27 years / Female INDICATIONS: Center chest pain and short of breath. CLINICAL DATA: This is the patient's subsequent encounter. Patient reports that signs and symptoms h ave been present for 4 - 6 days and indicates a pain score of 3/10. MEDICAL/SURGICAL HISTORY: Asthma. None. COMPARISON: No prior exams available for comparison. FINDINGS: A single AP view of the chest demonstrates the lungs to be symmetrically aerated without evidence of mass, infiltrate or effusion. The cardiomediastinal contours are unremarkable. Osseous structures a re intact. CONCLUSION: Negative for acute process Electronically signed by: Varinder Herrera MD 03/15/2018 1:56 PM EDT
[2018-03-15 18:26] VITALS: BP 95/52; PULSE 98; RESP 18; TEMP 98.1; O2SAT 99
[2018-03-16 05:38] VITALS: BP 104/64; PULSE 76; RESP 16; TEMP 97.8; O2SAT 97
[2018-03-16] MEDS: ACYCLOVIR 200 MG CAP PO SCH ×2 (06:05→09:39)
[2018-03-16] MEDS: ACETAMINOPHEN 325 MG TAB PO PRN (06:08)
[2018-03-16] MEDS: risperiDONE 1 MG TAB PO SCH (09:39)
[2018-03-16] MEDS ORDERED: RISP1 PO (10:11)
--- NOTE | 2018-03-16 10:12 | HHI.DS ---
Psychiatry Discharge Summary Inpatient Psychiatric care?: Yes Advance Directive: No Reason Not Provided: Due to Patient Condition Mental Health AdvanceDirective: No Health Care Proxy: No Admission Admission Date Mar 10, 2018 at 10:44 Admission Diagnosis: (1) Schizoaffective disorder ICD Code: F25.9 - Schizoaffective disorder, unspecified Brief History The patient is 27-year-old woman, domiciled in [place] with her aunt, single, unemployed, supported by [facility], with psychiatric history of schizoaffective disorder, cocaine and cannabis use disorder, impulse control, multiple psychiatric hospitalizations, multiple silo times, extensive history of self cutting behavior with no SI, she is noting medication at the moment, history of using high doses of Seroquel and Depakote, medical history of asthma , who presents emergency department under [place] act by PD for evaluation of depression and suicidal ideation. Patient states that she had a visitation with her child today I had gotten upset. She states that her child lives with her mother and she lives with her aunt. Her mother is the guardian of her child but she does have parental visitation rights. She states that she has been under increasing stress lately. She has contemplated overdosing today. She denies any toxic ingestions. She states that she had called police and advised him of her suicidal ideation. She states that she has attempted to cut an overdose in the past. The patient also states that she would hurt anyone that tries to hurt her but she has no plan on homicide. Patient reports her last period was very short lasting only 2 days earlier this past month. EMR was reviewed. The patient was seen today for psychiatric evaluation. The patient was calm, cooperative, tearful throughout the evaluation. The patient reports that she has been quite depressed because "a lot of things are going wrong my life", as the patient is talking, she is crying profusely. She reports that her grandmother passed out last September and since then she has been feeling [place]and[place]et, rejected by everybody, she states that her grandmother was the only person who really understood her. She reported that she has been quite stressed because her son is autistic and every time that she visit him he does not seem to have any memory of her. The patient reports having suicidal thoughts with a plan of cutting of jumping in front traffic, she denies homicidal ideation, denies visual and auditory hallucinations at the moment. She is oriented x3, logical, coherent and relevant, but quite agitated and dysregulated. She denies the use of alcohol and illegal drugs. Tobacco Use In Past 30 Days: 5 or More Cigarettes/Day Alcohol Use: 2-3 Times Per Week Hospital Course Patient was admitted to a locked, inpatient psychiatric unit. Appropriate precautions were in place throughout patient's hospital stay. Patient was seen and examined on the unit by psychiatry and also visited by counselor. Psychotropic medications were adjusted. Patient found Seroquel too sedating but tolerated Risperdal much better. Patient had improvement in presenting psychiatric symptomatology during the course of her hospital stay. There was no evidence of any suicidality or homicidality on the inpatient unit. There was no evidence of self-care deficit. Patient remained in generally good behavioral control and was medication compliant. Counselor did work with patient to try to identify an assisted living facility to which the patient could go, but in the end of the patient elected to go stay with her aunt. Counselor has confirmed that aunt is willing and able to accept the patient into her home. On the day of discharge: Patient seen and examined with counselor. Chart reviewed. Case discussed with nursing staff. No behavioral issues noted overnight. Case discussed with counselor. On my examination today , the patient is requesting discharge from the inpatient psychiatric unit today. She denies any suicidal or homicidal ideation, plan and contracts for safety. She is in good spirits and I can elicit no depressive or hypomanic/ manic symptoms. She denies any audiovisual hallucinations. She has no command auditory hallucinations. No delusional material. There is no evidence of impairment in reality construction. She denies side effects from medications. I have once again offered the patient a long-acting injectable prior to discharge, but she has declined and says that she will consider such an agent on an outpatient basis. She has no physical complaints. Suicide and violence risk assessment on day of discharge both suggest lower imminent risk from mental illness as defined under the Yao act, and the patient's level of function is adequate for outpatient care. Patient has maximized benefit from this inpatient psychiatric hospital stay and will be discharged today with psychiatric follow-up as arranged by counselor. Patient is also to follow up with primary care. I have counseled the patient to abstain from any substances of abuse. I have counseled the patient regarding warning signs for need to return to the psychiatric emergency room as part of a general safety plan. Results Blood Pressure 104 / 64 Vital Signs Date Time Temp Pulse Resp B/P (MAP) Pulse Ox O2 Delivery O2 Flow Rate FiO2 03/16/18 05:38 97.8 76 16 104/64 (77) 97 Laboratory Results Test 03/11/18 08:10 Cholesterol Level 157 MG/DL (120-200) HDL Cholesterol 77.6 MG/DL (40.0-60.0) Hemoglobin A1c 4.9 % (4.3-6.0) LDL Cholesterol 71 MG/DL (0-99) Triglycerides Level 42 MG/DL (42-150) Summary of Procedures None done Imaging Last Impressions Chest X-Ray 03/15/18 0000 Signed Impressions: CONCLUSION: Negative for acute process Pending results at discharge: No Medications # of Antipsychotic meds at D/C: 1 Approp Antipsych med options 1 - Minimum of three failed multiple trials of monotherapy. 2 - Documented plan to taper to monotherapy due to previous use of multiple meds OR cross-taper in progress at D/C. 3 - Documentation of augmentation of Clozapine. 4 - Justification other than those listed in allowable values 1-3, document here : Discharge Discharge Date: Mar 16, 2018 Discharge Diagnosis: (1) Schizoaffective disorder Diagnosis: Principal (Stabilized) ICD Code: F25.9 - Schizoaffective disorder, unspecified Pt Condition on Discharge: Stable Discharge Disposition: Discharge Home Discharge Instructions Diet Instructions: As Tolerated, No Restrictions Activities you can perform: Weight Bearing as Jeannette Scheduled Appointment: As per counselor's notes New Medications: Risperidone (Risperdal) 1 Mg Tab 1 MG PO Q12HR for Mental Health for 15 Days, TAB 1 Refill Continued Medications: Acyclovir (Acyclovir) 200 Mg Cap 200 MG PO 5 TIMES A DAY for Mgmt Viral Infection, CAP 0 Refills Epinephrine Inj (Epipen 2-Luis Eduardo Inj) 0.3 Mg/0.3 Ml Pfpen 0.3 MG IM ONCE PRN for ALLERGIC REACTION, #1 PACK 0 Refills Discontinued Medications: Carbamide Peroxide Otic Drops (Ear Drops) 6.5% Soln 5 DROP RIGHT EAR BID PRN for EAR WAX REMOVAL, #15 ML Erythromycin Opth Oint (Erythromycin Opth Oint) 5 Mg/Gm Oint 1 APPLIC RIGHT EYE Q4HR WHILE AWAKE for Infection for 5 Days, #1 TUBE 0 Refills Gabapentin (Gabapentin) 300 Mg Cap 300 MG PO BID, #60 CAP 0 Refills Olanzapine (Olanzapine) 20 Mg Tab 20 MG PO HS, #30 TAB 0 Refills Discharge Time <= 30 minutes Mental Status Examination Appearance: Appropriate Consciousness: Alert Orientation: x4 Motor Activity: Other (No abnormal motor movements noted) Speech: Unremarkable Language: Adequate Fund of Knowledge: Adequate Attention and Concentration: Adequate Memory: Unremarkable Mood: Appropriate Affect: Appropriate, Euthymic Thought Process & Associations: Intact, Logical, Goal directed, Linear Thought Content: Appropriate Hallucination Type: None Delusion Type: None Suicidal Ideation: No Suicidal Plan: No Suicidal Intention: No Homicidal Ideation: No Homicidal Plan: No Homicidal Intention: No Mental Status Exam Remarks Insight and judgment are perhaps fair Discharge/Advance Care Plan Health Problems: (1) Schizoaffective disorder Goals to promote your health * To prevent worsening of your condition and complications * To maintain your health at the optimal level Directions to meet your goals Take your medications as prescribed Follow your dietary instruction Follow activity as directed Keep your appointments as scheduled Take your immunizations and boosters as scheduled If your symptoms worsen call your PCP, if no PCP go to Urgent Care Center or Emergency Room For 24/ questions related to your inpatient stay or results of tests pending at discharge, please contact Dr. Feliberto Landis at Smoking is Dangerous to Your Health. Avoid second hand smoking Problem Qualifiers (1) Schizoaffective disorder: Qualified Codes: F25.0 - Schizoaffective disorder, bipolar type Feliberto Landis MD Mar 16, 2018 10:12
== END 2018-03-16 12:30 | disposition home or self-care (01) | DRG 885 ==
LOC: NEPJ 20:47 → NEDA 03-10 10:44 → H260 03-10 12:35
PROVIDERS: ADMIT Psychiatry & Neurology Psychiatry; ATTEND Psychiatry & Neurology Psychiatry
DX: F25.0 Schizoaffective disorder, bipolar type (principal); R45.851 Suicidal ideations; B00.9 Herpesviral infection, unspecified; F41.9 Anxiety disorder, unspecified; F43.10 Post-traumatic stress disorder, unspecified; H54.61 Unqualified visual loss, right eye, normal vision left eye; J45.909 Unspecified asthma, uncomplicated; F12.90 Cannabis use, unspecified, uncomplicated; R42 Dizziness and giddiness; R51 Headache; Z72.0 Tobacco use; Z91.5 Personal history of self-harm
CPT/HCPCS: 71045; 80048; 80053; 80061; 80307; 83036; 84443; 84703; 85025; 93005; 99285